=== PATIENT | female | born 1985 | race Caucasian/White ===

== ENCOUNTER → 2016-04-07 08:02 | Outpatient (CLI) | payer MEDICAID ==
[2015-04-01 14:02] VITALS: BMI 27.5
[~2016-04-07 08:02] MED LIST: ACETAMINOPHEN500 M1 PO; DEPO-PROVER150 MG/ML IM; ELIQUIS2.5 MG PO; HYDROCODONE-APA1 TAB PO; PERCOCET 10/3251 TA1 PO; VENTOLIN HFA18 GM INH
== END | disposition home or self-care (01) ==
LOC: D.NM 08:02
DX: T87.89 Other complications of amputation stump (principal)

== ENCOUNTER → 2016-04-14 11:40 | Outpatient (CLI) | payer MEDICAID ==
[2015-04-01 14:02] VITALS: BMI 27.5
[2016-04-14 12:10] LABS: WBC 10.3 10x3/uL (4.8-10.8)
[2016-04-14 13:34] LABS: ERYTHROCYTE SEDIMENTATION RATE 1 mm/hr (0-20)
== END | disposition home or self-care (01) ==
LOC: D.LAB 11:40
PROVIDERS: Orthopaedic Surgery
DX: T84.84XA Pain due to internal orthopedic prosthetic devices, implants and grafts, initial encounter (principal)

== ENCOUNTER → 2016-04-21 18:29 | Outpatient (CLI) | payer MEDICAID ==
[2015-04-01 14:02] VITALS: BMI 27.5
== END | disposition home or self-care (01) ==
LOC: D.LABREF 18:29
DX: M25.561 Pain in right knee (principal); Z11.8 Encounter for screening for other infectious and parasitic diseases

== ENCOUNTER 2016-05-04 09:00 | Inpatient (IN) | payer MEDICAID ==
[2016-04-30 16:07] LABS: BASOPHILS 0.6 % (0.0-2.0); EOSINOPHILS 4.6 % (0-7); HEMOGLOBIN 14.9 g/dL (12-16); IMMATURE GRANULOCYTES 0.1 % (0-5); LYMPHOCYTES 46.8 % (15-50); MCH 34.7 pg (26.0-34.0); MCHC 34.7 g/dL (31.0-37.0); MEAN PLATELET VOLUME 9.7 fL (7.4-10.4); MONOCYTES 7.6 % (2-11); NEUTROPHILS 40.3 % (40-80); RDW 12.4 % (11.5-14.5); WBC 8.5 10x3/uL (4.8-10.8)
[2016-04-30 16:10] LABS: PLATELET COUNT 225 10x3/uL (130-400)
[2016-04-30 16:13] LABS: APPEARANCE CLEAR (CLEAR); BILIRUBIN NEGATIVE (NEGATIVE); COLOR STRAW (YELLOW); GLUCOSE NEGATIVE (NEGATIVE); KETONE NEGATIVE (NEGATIVE); LEUKOCYTE ESTERASE NEGATIVE (NEGATIVE); NITRITE NEGATIVE (NEGATIVE); PROTEIN NEGATIVE (NEGATIVE); SPECIFIC GRAVITY 1.005 (1.005-1.020); UROBILINOGEN NORMAL (NORMAL)
[2016-04-30 16:17] LABS: CALC OSMOLALITY 275 mosm/kg (275-300); CALCIUM 9.3 mg/dL (8.5-10.1); CARBON DIOXIDE 27.6 mmol/L (21.0-32.0); CHLORIDE - SERUM 102 mmol/L (98-107); CREATININE - SERUM 0.7 mg/dL (0.6-1.3); GLUCOSE 86 mg/dL (74-106); POTASSIUM - SERUM 3.7 mmol/L (3.5-5.1); SODIUM 139 mmol/L (136-145); UREA NITROGEN 11 mg/dL (7-18); eGFR NON AFRICAN AMERICAN > 90 mL/min (90-120)
[2016-04-30 16:18] LABS: APTT 24.4 SECONDS (22.8-39.4); INR 0.94 (0.85-1.17); PROTIME 12.4 SECONDS (11.6-15.0)
[~2016-05-04] VITALS: Ht 157.5 cm; Wt 72.7 kg
[2016-05-04] VITALS (9 sets, daily range): BP systolic 112–144; BP diastolic 66–99; Ht 157.5 cm; Wt 72.7 kg
[2016-05-04 08:12] LABS: HCG URINE NEGATIVE (NEGATIVE)
--- NOTE | 2016-05-04 11:33 | NUR ---
SCRUBBED LEG WITH ALCOHOL AND HIBICLENS BEFORE DRAPING
--- NOTE | 2016-05-04 12:45 | NUR ---
PATIENT TO ROOM AT THIS TIME. NO COMPLAINTS. IV INTACT. VS STABLE. NEUROVASCULAR CHECK WNL. CALL LIGHT WITHIN REACH.
--- NOTE | 2016-05-04 15:00 | NUR ---
PATIENT IN BED WITH IV INTACT. VS STABLE. NO COMPLAINTS AT THIS TIME. FAMILY AT BEDSIDE. CALL LIGHT WITHIN REACH. PATIENT USING IS.
--- NOTE | 2016-05-04 17:45 | NUR ---
PATIENT TOLERATED REGULAR DIET. NO COMPLAINTS. VS STABLE. NEUROVASCULAR CHECKS WNL. IV INTACT. CALL LIGHT WITHIN REACH.
--- NOTE | 2016-05-04 18:50 | NUR ---
PATIENT IN BED WITH IV INTACT. NO OCMPLAINTS. NO CPM IN ROOM OR ORDERS FOR CPM AT THIS TIME. NOTIFIED ABHI NURSE CIGAR PATCHER. STATED SHE WOULD SPEAK WITH PHYSICIAN IN AM ABOUT CPM. PATIENT NEUROVASCULAR CHECKS WNL. FAMILY AT BEDSIDE. CALL LIGHT WITHIN REACH.
--- NOTE | 2016-05-04 19:53 | NUR ---
BROUGHT PATIENT WATER PER HER REQUEST. PATIENT HAS A GUEST AT BEDSIDE AND DENIES OTHER NEEDS AT THIS TIME. BED IN LOWEST POSITION AND CALL LIGHT WITHIN REACH.
[2016-05-05 01:00] VITALS: BP 110/62
[2016-05-05 05:00] VITALS: BP 111/59
[2016-05-05 05:49] LABS: HEMATOCRIT 35.5 % (36.0-48.0); HEMOGLOBIN 11.8 g/dL (12-16); MCH 33.7 pg (26.0-34.0); MCHC 33.2 g/dL (31.0-37.0); MCV 101.4 fL (80.0-100.0); MEAN PLATELET VOLUME 9.5 fL (7.4-10.4); RBC 3.5 10x6/uL (4.00-5.40); RDW 12.6 % (11.5-14.5)
--- NOTE | 2016-05-05 07:30 | NUR ---
REC'D PATIENT LYING SEMI FOWLERS IN BED. SPEECH CLEAR AND APPROPRIATE. DENIES PAIN @ THIS TIME. MUCUS MEMBRANCE PINK AND MOIST. SKIN WARM AND DRY AND APPRPRIATE FOR ETHNICITY. HAS A LEFT WRIST RUNNING @ 75 ML WITH D5 1/2. HAS A CAST AND DRESSING TO THE RIGHT KNEE. THERE IS A SPOT OF BLOOD ON THE DRESSING. PATIENT WAS CONCERNED. EDUCATED PATIENT THAT IT WAS OK. IS BEING DC'D LATER TODAY, INFORMED PATIENT OF THAT. PATIENT IS ALERT AND ORIENTED X4. DENIES HEARING AND VISION PROBLEMS. LUNGS CLEAR IN ALL LOBES. PERIPHERL PULSES 2+. HAS SCDS. INSTRUCTED PATIENT TO CALL IF NEEDED ANYTHING. PATIENT VERBALIZED UNDERSTANDING. BED LOW, LOCKED, CALL LIGHT IN REACH.
[2016-05-05 08:19] VITALS: BP 107/69
[2016-05-05] MEDS ORDERED: PERCOCET 10/3251 TA1 PO (08:24)
[2016-05-05] MEDS ORDERED: ELIQUIS2.5 MG PO (08:24)
--- NOTE | 2016-05-05 08:30 | NUR ---
PATIENT STATED THAT SHE WAS NAUSOUS AND WANTED TO KNOW IF SHE COULD GET ANYTHING FOR IT. TOLD HER THAT SHE COULD. ADMINISTERED MEDS PRESCRIBED. BED LOW, LOCKED, CALL LIGHT IN REACH. INTRUCTED TO CALL IF NEEDED ANYTHING. PATIENT VERBALIZED UNDERSTANDING.
--- NOTE | 2016-05-05 09:00 | NUR ---
DC'D IV PER DOCTORS ORDERS. PATIENT TOLERATED WELL. IV SITE WAS SOWLEN AROUND THE WRIST SLIGHTLY. IV HAD INFILTRATED SOME. INFORMED NURSE LUPILLO OF THIS. PATIENT STATED THAT THE VANCOMYICN WAS BURNING IN HER WRIST, INFORMED HER THATS WHERE THE IV HAD INFILTRATED. BED LOW, LOCKED, CALL LIGHT, IN REACH. INTRUCTED TO CALL IF NEEDED ANYTHING. PATIENT VERBALIZED UNDERSTANDING.
--- NOTE | 2016-05-05 09:45 | NUR ---
PATIENT WAS PLACED ON CPM MACHINE FOR A COUPLE OF HOURS, ONCE IT IS DONE SHE IS FREE TO GO HOME. WENT TO CHECK ON HER AND SHE STATED THAT SHE WAS IN PAIN 09/14. TOLD HER I WOULD BRING HER SOMETHING BACK. ASKED ABOUT HER NAUSUA SHE STATED IT HAD GONE AWAY. BED LOW, LOCKED, CALL LIGHT IN REACH. INTRUCTED TO CALL IF NEEDED ANYTHING.
--- NOTE | 2016-05-05 10:14 | NUR ---
Patient Name: ANNETTE ORTEGA Admission Status: Elective Accout number: [id number] Admission Date: 05-04-2016 : 1985 Admission Diagnosis: Attending: RAKESH Current LOS: 1 Anticipated DC Date: 05-05-2016 Planned Disposition: Home with Home Health Primary Insurance: MEDICAID [place] Discharge Planning Comments: CM MET WITH PATIENT REGARDING D/C NEEDS AND PLANS. PATIENT STATED SHE LIVES WITH HER MOM AND THEY HAVE 3 STEPS W/RAILS TO ENTER HOME AND 2 STAIRS W/O RAILS INSIDE. PATIENT STATED HER SISTER (DUARTE) WILL DRIVE HER HOME TODAY. PATIENT STATED SHE IS INDEPENDENT WITH HER CARE AND HAS A WALKER, AND BS COMMODE AT HOME. PATIENTS SISTER IS BRINGING HER WALKER TO HOSPITAL FOR DISCHARGE. PATIENT GOES TO [facility] WITH NO DEFINITE PCP AND USES [facility]. PATIENT HAS SIGNED THE [facility]KE FORM WITH [facility]. CM WILL CONTINUE TO FOLLOW PATIENT WITH D/C NEEDS AND PLANS. [facility]- [phone] DUARTE (SISTER) [phone] [facility] [phone] Vaccine Specialist: Mar Castro Is the patient Alert and Oriented? Yes 0 * How many steps to enter\exit or inside your home? 3/RAILS 0 * PCP [facility] * [facility] 0 * Preadmission Environment Home with Family 0 * ADLs Independent 0 * Equipment Bedside Commode Walker 0 * List name and contact numbers for known caregivers / representatives who currently or will assist patient after discharge: DUARTE (SISTER) [phone] 0 * Community resources currently utilized None 0 * Additional services required to return to the preadmission environment? Yes 0 * Can the patient safely return to the preadmission environment? Yes 0 * Has this patient been hospitalized within the prior 30 days at any hospital? No 0 Grand Total: 0
--- NOTE | 2016-05-05 11:31 | NUR ---
REASSESSED PAIN LEVEL PATIENT STATED SHE WAS @ A 4/10. INSTRUCTED TO CALL IF NEEDED ANYTHING. PATIENT VERBALIZED UNDERSTANDING. BED LOW, LOCKED, CALL LIGHT IN REACH.
[2016-05-05 11:46] VITALS: BP 111/67
--- NOTE | 2016-05-05 12:40 | NUR ---
PATIENT UP TO RESTROOM WITH ASSIST FROM ELSA VASQUEZ. NO SIGNS OF DISTRESS NOTED.
--- NOTE | 2016-05-05 13:07 | NUR ---
PT GIVEN DISCHARGE INSTRUCTIONS EXPRESSED UNDERSTANDING DRESSING CHANGED PER DISCHARGE ORDER PT GIVEN [facility] FOR PAIN MANAGMENT FOR [facility] DISCHARGED AT THIS TIME PER WHEELCHAIR VIA VOULENTEER STAFF TO PRIVATE VEHICLE.
--- NOTE | 2016-06-18 17:40 | OP ---
PATIENT NAME: ANNETTE ORTEGA MEDICAL RECORD: [id number] :[birth year] LOCATION:[facility] ADMISSION DATE:05/04/16 SURGEON: MAYRA RAY MD DATE OF OPERATION: 05/04/2016 PREOPERATIVE DIAGNOSIS: Painful total knee arthroplasty. POSTOPERATIVE DIAGNOSIS: Painful total knee arthroplasty. PROCEDURE: Revision total knee arthroplasty. SURGEON: Mayra Ray MD ANESTHESIA: General. INTRAOPERATIVE COMPLICATIONS: None. SUMMARY OF PATHOLOGIC FINDINGS: The patient had a well fixed distal femoral component and proximal tibial component; however, it was well balanced but loose. OPERATIVE SUMMARY IN DETAIL: After obtaining the appropriate preoperative orthopedic surgery consent as well as anesthetic consultation, evaluation and clearance, the patient was brought to the operating room and placed on the operating table in supine position. After general laryngeal mask airway was administered, a tourniquet was placed about the proximal aspect of the lower extremity, specifically right lower extremity. The leg was elevated, exsanguinated and tourniquet was inflated to 350 mmHg. Routine midline incision was created over the previous incision, taken down to the level of the patella, which was everted and distal femur was exposed. At this point, examination was carried out in extension and flexion. She was found to be balanced; however, several millimeters short of the appropriate tension. At this point, the polyethylene was taken out and trials were undertaken until the appropriate polyethylene measurements were noted. The new polyethylene was then put into place, essentially going from a 9 to a 13. This was taken through a range of motion and found to be excellent in all planes. Wound was copiously irrigated and closed. The paramedian arthrotomy was closed with #2 Ethibond followed by #1 Vicryl, 2-0 Vicryl and skin corey. Sterile dressings were applied. Tourniquet was deflated. The patient was awakened, taken to recovery room in stable condition. All final needle and sponge counts were correct. TRANSINT:[id number] Voice Confirmation ID: [id number] DOCUMENT ID: [id number] MAYRA RAY MD at 1740 CC: [id number] DICTATION DATE: 06/18/16 1156 CREDIT COLLECTIONS REP: 06/18/16 1352 DIS IN 05/05/16 [facility] [address] [place] [address]
== END 2016-05-05 13:11 | disposition home health service (06) | DRG 468 ==
LOC: D.SDCHOLD 09:00 → D.MS 09:44 → D.SDCHOLD 09:44 → D.MS 12:45
PROVIDERS: ADMIT Orthopaedic Surgery
PROC: 0SPV0JZ Removal of Synthetic Substitute from Right Knee Joint, Tibial Surface, Open Approach (ICD-10-PCS; principal; 2016-05-04 09:00)
PROC: 0SRV0J9 Replacement of Right Knee Joint, Tibial Surface with Synthetic Substitute, Cemented, Open Approach (ICD-10-PCS; principal; 2016-05-04 09:00)
DX: T84.84XA Pain due to internal orthopedic prosthetic devices, implants and grafts, initial encounter (principal); F17.200 Nicotine dependence, unspecified, uncomplicated

== ENCOUNTER → 2016-08-04 12:33 | Outpatient (CLI) | payer MEDICAID ==
[2016-05-04 20:06] VITALS: BMI 29.3
== END | disposition home or self-care (01) ==
LOC: D.MRI 07-24 10:00
DX: M23.8X2 Other internal derangements of left knee (principal)